=== PATIENT | male | born 1950 | race Two or more races ===

== ENCOUNTER 2018-01-10 13:17 | Inpatient (IN) | payer MEDICARE, MEDICAID ==
[~2018-01-10] VITALS: Ht 165.1 cm; Wt 68.9 kg
--- NOTE | 2018-01-10 19:35 | NUR ---
ADMITTED A 67 Y/O MALE FROM HOME. PATIENT IS ON VOLUNTARY STATUS. PATIENT PRESENTS EMERGENCY DEPARTMENT WITH COMPLAINTS OF PARANOIA. PT HAS HISTORY OF PARANOID SCHIZOPRENIA. PT LIVES BY HIMSELF, BUT HAS BECOME PARANOID IN THE PAST 10 YRS. HE BELEIVES THAT PEOPLE ARE OUT TO KILL HIM INCLUDING HIS BROTHER. UPON FACE TO FACE EVALUATION, PATIENT APPEARED ALERT AND ORIENTED X 3, COOPERATIVE, ANXIOUS, PARANOID. NO SOB, NO COMPLAIN OF PAIN/DISCOMFORT AT THIS TIME, V/S STABLE, NO ACUTE DISTRESS NOTED. SKIN BODY ASSESSMENT DONE. SKIN CLEAR AND INTACT. MRSA DONE. PATIENT REFUSED TO SIGN PAPER WORKS. PATIENT IS UNDER THE CARE OF DR. BURRIS FOR PSYCH AND DR. GARCIA FOR MEDICAL. BOTH DOCTORS ARE AWARE OF THE ADMISSION. BELONGINGS CHECKED FOR CONTRABAND ITEMS. PUT IT IN SAFE LOCK CABINET. KEPT CLEAN, DRY AND COMFORTABLE AT ALL TIMES. ALL NEEDS ATTENDED & ANTICIPATED. WILL CONTINUE TO MONITOR Q15 MINS FOR SAFETY.
[2018-01-10] MEDS ORDERED: ZOLPIDEM TARTRATE 5 MG TABLET PO PRN (20:00)
[2018-01-10] MEDS ORDERED: MAG HYDROX/AL HYDROX/SIMETH 30 ML UDC PO PRN (20:00)
[2018-01-10] MEDS ORDERED: ACETAMINOPHEN 325 MG TABLET PO PRN (20:00)
[2018-01-10] MEDS ORDERED: MAGNESIUM HYDROXIDE 30 ML UDC PO PRN (20:00)
[2018-01-10] MEDS ORDERED: LORAZEPAM 1 MG TABLET ONE (20:06)
[2018-01-10] MEDS ORDERED: BENZ2TAB7 PO (21:26)
[2018-01-10] MEDS ORDERED: OLAN20TA3 PO (21:26)
[2018-01-10] MEDS ORDERED: ZOLP10TA2 PO (21:26)
[2018-01-10] MEDS ORDERED: OMEP20CA10 PO (21:26)
[2018-01-11 00:54] VITALS: BP 113/74
[2018-01-11 06:26] LABS: BASOPHILS % (AUTO) 0.4 % (0.0-2.0); EOSINOPHILS % (AUTO) 1.7 % (0.0-6.0); HEMATOCRIT 47 % (39-51); HEMOGLOBIN 15.8 g/dL (13.5-17.5); LYMPHOCYTES # (AUTO) 1.9 /CMM (0.8-4.8); LYMPHOCYTES % (AUTO) 20.3 % (20.0-44.0); MEAN CORPUSCULAR HGB CONC 34 g/dl (31.0-36.0); MEAN CORPUSCULAR VOLUME 87 fL (80-96); MONOCYTES # (AUTO) 0.6 /CMM (0.1-1.30); MONOCYTES % (AUTO) 6.8 % (2.0-12.0); NEUTROPHILS # (AUTO) 6.5 /CMM (1.8-8.9); NEUTROPHILS % (AUTO) 70.8 % (43.0-81.0); PLATELET COUNT (AUTO) 292 /CMM (150-450); RDW COEFFICIENT OF VARIATION 13.1 (11.5-15.0); RED BLOOD CELL COUNT(AUTO) 5.41 MIL/uL (4.5-6.0); WHITE BLOOD COUNT (AUTO) 9.3 K/uL (4.3-11.0)
[2018-01-11 06:53] LABS: ALBUMIN 3.8 g/dL (3.4-5.0); BILIRUBIN,TOTAL 1.7 mg/dL (0.2-1.0); CALCIUM, SERUM 9.2 mg/dL (8.5-10.1); CREATININE 1.4 mg/dL (0.6-1.3); POTASSIUM 3.8 mmol/L (3.5-5.1); TOTAL PROTEIN, SERUM 7.5 g/dL (6.4-8.2)
[2018-01-11 08:20] LABS: CHOLESTEROL 175 mg/dL (<200); HDL CHOLESTEROL 43 mg/dL (40-60); LDL 116 mg/dL (0-99); TRIGLYCERIDES 105 mg/dL (30-150)
[2018-01-11 08:25] VITALS: BP 125/75
[2018-01-11] MEDS: OLANZAPINE 10 MG TABLET PO SCH ×2 (13:09→21:00)
[2018-01-11 16:00] VITALS: BP 137/89
[2018-01-11] MEDS: LORAZEPAM 0.5 MG TABLET PO PRN (16:05)
[2018-01-11 19:51] VITALS: BP 144/99
--- NOTE | 2018-01-11 21:21 | NUR ---
GPS RN NOTE: PATIENT REFUSED ZYPREXA 10MG, PATIENT ALERT AND ORIENTED X 3, EXPLAINED THE RISK AND BENEFITS, ATTEMPTED X 3, PATIENT STILL REFUSED.
[2018-01-12 08:00] VITALS: BP 117/98
[2018-01-12] MEDS: OLANZAPINE 10 MG TABLET PO SCH ×2 (08:56→10:30)
[2018-01-12] MEDS: LORAZEPAM 0.5 MG TABLET PO PRN (14:07)
[2018-01-12 16:01] VITALS: BP 134/87
[2018-01-12 19:53] VITALS: BP 133/83
--- NOTE | 2018-01-12 21:30 | NUR ---
GPS RN NOTE, PATIENT IS SIGNING AMA DUE TO THE FACT HE IS ON VOLUNTARY STATUS. DR BURRIS AND DR GROVE MADE AWARE AND AGREE WITH REQUEST. PATIENT STABLE FOR DISCHARGE, VS STABLE, PATIENT DENIES SI AND HI AT THIS TIME. PATIENT TOLD TO GO TO THE NEAREST E.R. IF HE HAS THOUGHTS OF SI OR HI. PATIENT SIGNED ALL PAPER WORK. PATIENT'S BELONGINGS SIGNED FOR AND DISCHARGED WITH PATIENT. PATIENT IS TO FOLLOW UP WITH OWN INTEREST AND PSY. PATIENT DOES NOT QUALIFY FOR MRSA SWAB DUE TO ADMISSION BEING LESS THAN 21 DAYS. PATIENT DISCHARGED TO [facility]. PATIENT LEFT IN STABLE CONDITION.
== END 2018-01-12 21:35 | disposition left against medical advice (07) | DRG 885 ==
LOC: GPSOV2 18:59 → GPS 19:52
PROVIDERS: ADMIT Psychiatry & Neurology Psychiatry; ATTEND Internal Medicine
DX: F20.0 Paranoid schizophrenia (principal); Z91.19 Patient's noncompliance with other medical treatment and regimen; N18.2 Chronic kidney disease, stage 2 (mild)
CPT/HCPCS: 36415; 80053-TC; 80061-TC; 85025-TC; 87081-TC; Z7610